=== PATIENT | female | born 1985 | race Asian ===

== ENCOUNTER 2020-02-11 11:53 | Inpatient (IN) | payer OTHER ==
[2020-02-11] VITALS (13 sets, daily range): BP systolic 101–127; BP diastolic 63–87
[~2020-02-11] VITALS: Ht 153 cm; Wt 49.9 kg
--- NOTE | 2020-02-11 12:13 | Emergency Room Report ---
History of Present Illness General Chief Complaint: Back Injury Source: Patient Present Illness HPI Patient is a 34-year-old female who presents after increased low back pain rating to her left leg. Patient reports having pain down to her foot. Had been having increased difficulty with urination. Reports having some abnormal sensation to her perineal area. Patient had recent MRI performed which showed some abnormality to the L5-S1 disc. With disc extrusion. Patient had been having difficulty with ambulation. Patient was sent in by Dr. Roy.Patient had no complaints of neck discomfort. She denies any stool incontinence. 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 Patient History Past Medical History: see triage record Last Menstrual Period: 01/07/20 Reviewed Nursing Documentation: PMH: Agreed; PSxH: Agreed Nursing Documentation-PMH Past Medical History: No History, Except For Review of Systems All Other Systems: negative except mentioned in HPI Physical Exam Vital Signs Date Time Temp Pulse Resp B/P (MAP) Pulse Ox O2 Delivery O2 Flow Rate FiO2 02/11/20 11:57 98.1 106 17 105/73 (84) 98 Room Air Sp02 EP Interpretation: reviewed, normal General Appearance: normal inspection, well appearing, no apparent distress, alert, GCS 15 Head: atraumatic ENT: normal ENT inspection, hearing grossly normal, normal voice Neck: normal inspection, full range of motion, supple, no bony tend Respiratory: normal inspection, lungs clear, normal breath sounds, no respiratory distress, no retraction, no wheezing Cardiovascular #1: regular rate, rhythm, no edema Gastrointestinal: normal inspection, normal bowel sounds, non tender, soft, no guarding, no hernia Genitourinary: no CVA tenderness Musculoskeletal: normal inspection, back normal, normal range of motion Neurologic: alert, 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 Differential diagnosis include was not limited to cauda equina syndrome, lumbar herniated disc, epidural abscess among others. Because of complexity of patient 's case laboratory tests and imaging studies were ordered. Patient was referred with an MRI which had previously showed severe extrusion of disc. Patient was having difficulty with ambulation and is unable to flex of the spine at all. Dr. Roy was contacted and patient will be hospitalized for operative management of probable cauda equina syndrome.Preop laboratory testing was sentDrAzael Galeano was contacted for inpatient management. Labs Test 02/11/20 12:25 White Blood Count 7.4 K/UL (4.8-10.8) Red Blood Count 4.82 M/UL (4.20-5.40) Hemoglobin 14.8 G/DL (12.0-16.0) Hematocrit 43.3 % (37.0-47.0) Mean Corpuscular Volume 90 FL (80-99) Mean Corpuscular Hemoglobin 30.8 PG (27.0-31.0) Mean Corpuscular Hemoglobin Concent 34.3 G/DL (32.0-36.0) Red Cell Distribution Width 10.5 % (11.6-14.8) Platelet Count 262 K/UL (150-450) Mean Platelet Volume 7.0 FL (6.5-10.1) Neutrophils (%) (Auto) 63.5 % (45.0-75.0) Lymphocytes (%) (Auto) 29.7 % (20.0-45.0) Monocytes (%) (Auto) 5.2 % (1.0-10.0) Eosinophils (%) (Auto) 0.7 % (0.0-3.0) Basophils (%) (Auto) 1.0 % (0.0-2.0) Prothrombin Time 12.2 SEC (9.30-11.50) Prothromb Time International Ratio 1.1 (0.9-1.1) Activated Partial Thromboplast Time 25 SEC (23-33) Urine Color Pale yellow Urine Appearance Slightly cloudy Urine pH 5 (4.5-8.0) Urine Specific [place] 1.015 (1.005-1.035) Urine Protein 1+ (NEGATIVE) Urine Glucose (UA) Negative (NEGATIVE) Urine Ketones Negative (NEGATIVE) Urine Blood 1+ (NEGATIVE) Urine Nitrite Negative (NEGATIVE) Urine Bilirubin Negative (NEGATIVE) Urine Urobilinogen Normal MG/DL (0.0-1.0) Urine Leukocyte Esterase 2+ (NEGATIVE) Urine HCG, Qualitative Negative (NEGATIVE) Sodium Level 137 MMOL/L (136-145) Potassium Level 3.3 MMOL/L (3.5-5.1) Chloride Level 101 MMOL/L (98-107) Carbon Dioxide Level 26 MMOL/L (21-32) Anion Gap 10 mmol/L (5-15) Blood Urea Nitrogen 12 mg/dL (7-18) Creatinine 0.9 MG/DL (0.55-1.30) Estimat Glomerular Filtration Rate > 60 mL/min (>60) Glucose Level 90 MG/DL (74-106) Calcium Level 9.7 MG/DL (8.5-10.1) Total Bilirubin 0.7 MG/DL (0.2-1.0) Aspartate Amino Transf (AST/SGOT) 16 U/L (15-37) Alanine Aminotransferase (ALT/SGPT) 13 U/L (12-78) Alkaline Phosphatase 38 U/L (46-116) Total Protein 8.5 G/DL (6.4-8.2) Albumin 4.4 G/DL (3.4-5.0) Globulin 4.1 g/dL Albumin/Globulin Ratio 1.1 (1.0-2.7) Last Vital Signs Date Time Temp Pulse Resp B/P (MAP) Pulse Ox O2 Delivery O2 Flow Rate FiO2 02/11/20 12:01 98.1 106 17 105/73 98 Room Air Status: unchanged Disposition: ADMITTED INPATIENT Condition: Stable Carlos Mahan MD Feb 11, 2020 12:13
--- NOTE | 2020-02-11 12:34 | Diagnostic Imaging Report ---
Indication: Chest pain. Preop Technique: XRAY Chest 1v Comparison: None Findings: Heart size and mediastinal contours are within normal limits for AP technique. There is no focal airspace consolidation, pneumothorax or pleural effusion. Osseous structures demonstrate no acute abnormality. Impression: No radiographic evidence of acute cardiopulmonary disease.
[2020-02-11 12:56] LABS: EOSINOPHILS % (AUTO) 0.7 % (0.0-3.0); HEMATOCRIT 43.3 % (37.0-47.0); HEMOGLOBIN 14.8 G/DL (12.0-16.0); LYMPHOCYTES % (AUTO) 29.7 % (20.0-45.0); MEAN CORPUSCULAR VOLUME 90 FL (80-99); MONOCYTES % (AUTO) 5.2 % (1.0-10.0); NEUTROPHILS % (AUTO) 63.5 % (45.0-75.0); PLATELET COUNT 262 K/UL (150-450); RED BLOOD COUNT 4.82 M/UL (4.20-5.40); RED CELL DISTRIBUTION WIDTH 10.5 % (11.6-14.8); WHITE BLOOD COUNT 7.4 K/UL (4.8-10.8)
[2020-02-11 12:58] LABS: ANION GAP 10 mmol/L (5-15); BLOOD UREA NITROGEN 12 mg/dL (7-18); CALCIUM 9.7 MG/DL (8.5-10.1); CARBON DIOXIDE 26 MMOL/L (21-32); CHLORIDE 101 MMOL/L (98-107); CREATININE 0.9 MG/DL (0.55-1.30); INR 1.1 (0.9-1.1); POTASSIUM 3.3 MMOL/L (3.5-5.1); SODIUM 137 MMOL/L (136-145)
[2020-02-11 13:01] LABS: APPEARANCE,URINE SLIGHTLY CLOUDY; BILIRUBIN, URINE NEGATIVE (NEGATIVE); COLOR,URINE PALE YELLOW; GLUCOSE, URINE (UA) NEGATIVE (NEGATIVE); KETONES,URINE NEGATIVE (NEGATIVE); LEUKOCYTE ESTERASE ,URINE 2+ (NEGATIVE); NITRITE,URINE NEGATIVE (NEGATIVE); PH,URINE 5 (4.5-8.0); PROTEIN,URINE 1+ (NEGATIVE); UROBILINOGEN,URINE NORMAL MG/DL (0.0-1.0)
[2020-02-11 13:03] LABS: ALANINE AMINOTRANSFERASE 13 U/L (12-78); ALBUMIN 4.4 G/DL (3.4-5.0); ALBUMIN/GLOBULIN RATIO 1.1 (1.0-2.7); ALKALINE PHOSPHATASE 38 U/L (46-116); ASPARTATE AMINO TRANSFERASE 16 U/L (15-37); BILIRUBIN,TOTAL 0.7 MG/DL (0.2-1.0)
[2020-02-11] MEDS ORDERED: cefTRIAXone 1 GM in NS 55 ML IVPB ONE (13:30)
[2020-02-11] MEDS ORDERED: LR 1000ml 1,000 ML IVLG SCH (13:56)
[2020-02-11] MEDS ORDERED: Labetalol 5mg/ml 20ml vial IV PRN (14:00)
[2020-02-11] MEDS ORDERED: Acetaminophen (Non formulary) 100 ML IV ONE (14:00)
[2020-02-11] MEDS ORDERED: oxyCODONE HCL/Acetaminophen 5/325mg ORAL PRN (14:00)
[2020-02-11] MEDS ORDERED: LORazepam Inj 2mg/ml 1ml IV PRN (14:00)
[2020-02-11] MEDS ORDERED: HYDROcodone/Acetamin 5/325 tab ORAL PRN ×2 (14:00→18:02)
[2020-02-11] MEDS ORDERED: Atropine Sulfate 0.4mg/ml inj IVP PRN (14:00)
[2020-02-11] MEDS ORDERED: fentaNYL 100 mcg/2 mL IV PRN (14:00)
[2020-02-11] MEDS ORDERED: HYDROcodone/Acetamin 7.5/325 tab ORAL PRN (14:00)
[2020-02-11] MEDS ORDERED: Ketorolac 30mg Inj IV PRN ×2 (14:00)
[2020-02-11] MEDS ORDERED: Metoclopramide 10mg/2ml Inj IVP PRN (14:00)
[2020-02-11] MEDS ORDERED: DiphenhydrAMINE 50mg/ml Inj IVP PRN (14:00)
[2020-02-11] MEDS ORDERED: Midazolam 2mg/2ml Inj IVP PRN (14:00)
[2020-02-11] MEDS ORDERED: Hydromorphone 0.5mg/0.5ml inj IVP PRN (14:00)
[2020-02-11] MEDS ORDERED: TRAMADOL HCL50 MG ORAL (14:01)
[2020-02-11] MEDS ORDERED: MULTI VITAMIN1 EACH ORAL (14:01)
--- NOTE | 2020-02-11 14:01 | Anethesia Preoperative Eval ---
Anesthesia Pre-op PMH/ROS General Date of Evaluation: Feb 11, 2020 Time of Evaluation: 13:58 Anesthesiologist: Judy ASA Score: ASA 1 - Emergency Mallampati Score Class I : Soft palate, uvula, fauces, pillars visible Class II: Soft palate, uvula, fauces visible Class III: Soft palate, base of uvula visible Class IV: Only hard plate visible Mallampati Classification: Class I Surgeon: Kirill Diagnosis: Back Pain Surgical Procedure: L5-S1 Discectomy/ Laminectomy Family History: no anesthesia problems Allergies: Coded Allergies: Gonzalez (Verified Allergy, Unknown, 02/11/20) PEACH (Verified Allergy, Unknown, 02/11/20) Medications: see eMAR Patient NPO?: Yes Anesthesia Pre-op Phys. Exam Physician Exam Last Vital Signs Date Time Temp Pulse Resp B/P (MAP) Pulse Ox O2 Delivery O2 Flow Rate FiO2 02/11/20 12:01 98.1 106 17 105/73 98 Room Air Constitutional: NAD Neurologic: CN 2-12 intact Cardiovascular: RRR Respiratory: CTA Gastrointestinal: S/NT/ND Airway Exam Mallampati Score: Class I MO: full ROM: full Teeth: missing, intact Anesthesia Pre-op A/P Labs Hematology Test 02/11/20 12:25 White Blood Count 7.4 K/UL (4.8-10.8) Red Blood Count 4.82 M/UL (4.20-5.40) Hemoglobin 14.8 G/DL (12.0-16.0) Hematocrit 43.3 % (37.0-47.0) Mean Corpuscular Volume 90 FL (80-99) Mean Corpuscular Hemoglobin 30.8 PG (27.0-31.0) Mean Corpuscular Hemoglobin Concent 34.3 G/DL (32.0-36.0) Red Cell Distribution Width 10.5 % (11.6-14.8) L Platelet Count 262 K/UL (150-450) Mean Platelet Volume 7.0 FL (6.5-10.1) Neutrophils (%) (Auto) 63.5 % (45.0-75.0) Lymphocytes (%) (Auto) 29.7 % (20.0-45.0) Monocytes (%) (Auto) 5.2 % (1.0-10.0) Eosinophils (%) (Auto) 0.7 % (0.0-3.0) Basophils (%) (Auto) 1.0 % (0.0-2.0) Coagulation Test 02/11/20 12:25 Prothrombin Time 12.2 SEC (9.30-11.50) H Prothromb Time International Ratio 1.1 (0.9-1.1) Activated Partial Thromboplast Time 25 SEC (23-33) Chemistry Test 02/11/20 12:25 Sodium Level 137 MMOL/L (136-145) Potassium Level 3.3 MMOL/L (3.5-5.1) L Chloride Level 101 MMOL/L (98-107) Carbon Dioxide Level 26 MMOL/L (21-32) Anion Gap 10 mmol/L (5-15) Blood Urea Nitrogen 12 mg/dL (7-18) Creatinine 0.9 MG/DL (0.55-1.30) Estimat Glomerular Filtration Rate > 60 mL/min (>60) Glucose Level 90 MG/DL (74-106) Calcium Level 9.7 MG/DL (8.5-10.1) Total Bilirubin 0.7 MG/DL (0.2-1.0) Aspartate Amino Transf (AST/SGOT) 16 U/L (15-37) Alanine Aminotransferase (ALT/SGPT) 13 U/L (12-78) Alkaline Phosphatase 38 U/L (46-116) L Total Protein 8.5 G/DL (6.4-8.2) H Albumin 4.4 G/DL (3.4-5.0) Globulin 4.1 g/dL Albumin/Globulin Ratio 1.1 (1.0-2.7) Urine Test Test 02/11/20 12:25 Urine HCG, Qualitative Negative (NEGATIVE) Risk Assessment & Plan Assessment: ASA 1E Plan: GA, SED, GlideScope Status Change Before Surgery: No Pre-Antibiotics Dru Grams Ancef IV Time Given: 15:36 Rober Kim MD Feb 11, 2020 14:01
[2020-02-11] MEDS ORDERED: Vancomycin 1gm vial IVPB ONE (14:37)
[2020-02-11] MEDS ORDERED: Thrombin 5000 units TOPIC ONE (14:38)
[2020-02-11] MEDS ORDERED: Gelfoam Size TOPIC ONE (14:38)
[2020-02-11] MEDS ORDERED: Bupivacaine w/Epi 0.5% 30ml Vial INJ ONE (14:38)
[2020-02-11] MEDS ORDERED: Rocuronium Bromide 50mg/5ml Inj IV ONE (14:44)
[2020-02-11] MEDS ORDERED: Bacitracin 50000 Units Vial ONE (14:44)
[2020-02-11] MEDS ORDERED: Sodium Chloride 10ml vial INJ ONE (14:49)
[2020-02-11] MEDS ORDERED: Lidocaine 1% MPF 10mg/ml 5ml ONE (14:49)
[2020-02-11] MEDS ORDERED: Lidocaine 1% Plain 30 ml INJ ONE (14:50)
[2020-02-11] MEDS ORDERED: fentaNYL 100 mcg/2 mL IV ONE (14:50)
[2020-02-11] MEDS ORDERED: NS Irrig 1000ml ONE (15:00)
[2020-02-11] MEDS ORDERED: propofoL 1,000mg/100ml IV ONE (15:00)
[2020-02-11] MEDS ORDERED: Sterile Water Irrig 1000ml IRRIG ONE (15:00)
[2020-02-11] MEDS ORDERED: LR 1000ml ONE (15:00)
--- NOTE | 2020-02-11 15:10 | Pre-Procedure Note/Attestation ---
Pre-Procedure Note/Attestation Complete Prior to Procedure Procedure Narrative: L5S1 Laminectomy and discectomy Indications for Procedure Pre-Operative Diagnosis: L5S1 disc herniation with cauda equina syndrome Attestation I attest that I discussed the nature of the procedure; its benefits; risks and complications; and alternatives (and the risks and benefits of such alternatives ), prior to the procedure, with the patient (or the patient's legal practice representative). I attest that, if there was a reasonable possibility of needing a blood transfusion, the patient (or the patient's legal practice representative) was given the [facility] standardized written summary, pursuant to the César [employer] Sleep Blood Safety Act ([place] Health and Safety Code # 1645, as amended). I attest that I re-evaluated the patient just prior to the surgery and that there has been no change in the patient's H&P, except as documented below: Mauro Roy MD Feb 11, 2020 15:10
[2020-02-11] MEDS ORDERED: BSS 15ml BTL ONE (15:18)
[2020-02-11] MEDS ORDERED: Glycopyrrolate 0.2mg/ml 1ml Vial ONE (16:42)
[2020-02-11] MEDS ORDERED: Neostigmine 1mg/ml 10ml Inj ONE (16:42)
[2020-02-11] MEDS ORDERED: NS Irrig 1000ml IRRIG ONE (16:45)
--- NOTE | 2020-02-11 16:58 | Immediate Post-Op Evaluation ---
Immediate Post-Op Evalulation Immediate Post-Op Evalulation Procedure: L5-S1 Discectomy/ Laminectomy Date of Evaluation: Feb 11, 2020 Time of Evaluation: 15:28 IV Fluids: 900 LR Blood Products: 0 Estimated Blood Loss: 40 Urinary Output: 700 Blood Pressure Systolic: 104 Blood Pressure Diastolic: 75 Pulse Rate: 74 Respiratory Rate: 16 O2 Sat by Pulse Oximetry: 100 Temperature (Fahrenheit): 97.1 Pain Score (1-10): 2 Nausea: No Vomiting: No Complications 0 Patient Status: awake, reacts, patent, extubated, none Hydration Status: adequate Dru Grams Ancef IV Given Within 1 Hr of Incision: Yes Time Given: 15:36 Rober Kim MD Feb 11, 2020 16:58
--- NOTE | 2020-02-11 17:09 | Brief Operative Note ---
Immediate Post Operative Note Operative Note Pre-op Diagnosis: L5S1 disc herniation with cauda equina syndrome Procedure: L5 and S1 laminectomy and discectomy L Post-op Diagnosis: same as pre-op Findings: consistent w/pre-op dx studies Surgeon: efrain Transformer Molder: theresa cotter Anesthesia: general Specimen: yes - l5s1 disc Complications: none Condition: stable Fluids: 900 Estimated Blood Loss: minimal Drains: none Implant(s) used?: No Mauro Roy MD Feb 11, 2020 17:09
[2020-02-11] MEDS: Meperidine 25mg/0.5ml Inj (FOR RIGORS ONLY) IV PRN ×2 (17:30→17:48)
[2020-02-11] MEDS ORDERED: Milk of Magnesia 30ml Ud ORAL PRN (18:03)
--- NOTE | 2020-02-11 19:30 | Operative Note - Dictated ---
DATE OF OPERATION: 02/11/2020 SURGEON: Mauro Roy MD NATURAL GAS INSPECTOR: Pedro Pineda MD ANESTHESIA: Rober Kim MD ANESTHESIA TYPE: General endotracheal anesthesia. PREOPERATIVE DIAGNOSIS: Giant disk extrusion, L5-S1, with severe acquired spinal stenosis and cauda equina syndrome with left lower extremity radiculopathy and weakness. POSTOPERATIVE DIAGNOSIS: Giant disk extrusion, L5-S1, with severe acquired spinal stenosis and cauda equina syndrome with left lower extremity radiculopathy and weakness. PROCEDURE: 1. Wide and radical laminectomy, left side. 2. Wide and radical laminectomy, left side S1. 3. Medial facetectomy, left L5-S1. 4. Excision of extruded disk fragment, L5-S1. 5. Use of fluoroscopy. 6. Use of operating microscope. 7. Neurodiagnostic monitoring. ESTIMATED BLOOD LOSS: Minimal. FLUIDS: 900 mL. COMPLICATIONS: None. INDICATIONS: The patient is a very pleasant woman, 34 years old, I met earlier in the day. She was in intractable pain. She could barely stand or walk. She had symptoms for several weeks; however, over the course of the last 3-5 days, she had developed perineal sensory loss. She has had the inability to have normal bowel movements. She has intractable pain down the left lower extremity despite oral steroids. An MRI confirmed a 22-mm disk extrusion at L5-S1 obliterating the left side of the canal at the L5 and S1 level with extrusion of the disk down beyond S1-S2 level. Due to the neurologic deficit, weakness in the left lower extremity, exceedingly large nature of the disk herniation as well as the intractable nature of her pain and failure of management with conservative care/steroids, surgical intervention was recommended. RISK NOTE: The patient was explained in detail risks and benefits of surgery to include but not be limited to those of bleeding, infection, damage to nerves/vessels/tendons, anesthetic risk, allergic reaction, aspiration, and possibly . Potential risk of recurrent disk herniation was discussed. The patient understood and wished to proceed. OPERATIVE PROCEDURE IN DETAIL: The patient was taken to the operating suite after positive identification was made. She was put to sleep. General anesthesia was induced and endotracheal tube was placed. Aguirre catheter was placed. She received 2 grams of Ancef. She was then turned prone onto a Ap frame. All bony prominences were well padded. The back was prepped and draped in usual sterile fashion. At this point, the back was visualized after it was prepped and draped. Two needles were placed at L4-L5 and L5-S1, and radiographically positioning was confirmed. A midline incision was carried out at L5-S1 spinous process. Subperiosteal dissection was carried out. High-speed drill was brought in place after fluoroscopically this L5-S1 level was verified. Self-retaining retractor was put in place. The high-speed drill was then used to perform laminectomy of the leading edge of L5 and superior one-half of S1. Medial facetectomy of approximately one-quarter of the facet joint was drilled out. Curved curette mobilized the ligamentum flavum. Kerrison punch completed the laminectomy at L5, inferior one-half as well as S1 superior three-quarters. The ligamentum flavum was removed in a piecemeal fashion. The S1 nerve root was noted to be exceedingly tight. I attempted to mobilize the S1 nerve root medially; however, this could not be performed as the disk herniation was medial to and in the area of the axilla of S1 and S2. An interaxillary approach was then taken. The disk was identified, mobilized, and a #15 blade was used to incise the posterior longitudinal ligament. The L5-S1 disk extrusion was then removed in a very large single piece, which measured approximately 8 cm. Videographic and photographic images were obtained. At this point, once satisfied with the removal of the disk extrusion, attention was then turned to the disk space. Although there was a small and notable defect within the disk, copious irrigation demonstrated no obvious loose disk fragment. A pituitary grasper was used to remove any further loose disk fragments from within the disk. Meticulous hemostasis was then achieved. Once satisfied with decompression, Valsalva maneuver was performed demonstrating no evidence of dural leak. Copious irrigation was then performed. Meticulous hemostasis was performed. FloSeal was applied. Decision was made to close. The fascia was repaired using #1 Vicryl and subcu closure using 2-0 Vicryl. Dermabond and sterile dressing was applied. The patient was then turned onto her back, awakened, extubated, and transferred to recovery room in stable condition. Sponge and needle counts were correct. Neurodiagnostic monitoring remained unchanged throughout the procedure. Mauro Ajay Roy DR: Clementine JOB#: [id number] CC:
[2020-02-11] MEDS: D5 1/2NS 1,000 ML IV SCH (20:30)
[2020-02-11] MEDS: Docusate 100mg cap ORAL SCH (21:04)
[2020-02-11] MEDS ORDERED: ceFAZolin sod 1 GM in D5W 55 ML IV SCH (22:00)
[2020-02-12] VITALS: BP 110/68
[2020-02-12 03:38] VITALS: BP 107/69
[2020-02-12] MEDS: ceFAZolin sod 1 GM in D5W 55 ML IV SCH ×2 (05:43→13:36)
[2020-02-12] MEDS: D5 1/2NS 1,000 ML IV SCH ×2 (05:43→16:00)
[2020-02-12 08:00] VITALS: BP 125/76
[2020-02-12] MEDS: Docusate 100mg cap ORAL SCH (09:07)
--- NOTE | 2020-02-12 09:18 | 48 Hour Post Anesthesia Eval ---
Post Anesthesia Evaluation Procedure: L5-S1 Discectomy/ Laminectomy Date of Evaluation: Feb 12, 2020 Time of Evaluation: 09:16 Blood Pressure Systolic: 116 0: 72 Pulse Rate: 74 Respiratory Rate: 18 Temperature (Fahrenheit): 97.6 O2 Sat by Pulse Oximetry: 98 Airway: patent Nausea: No Vomiting: No Pain Intensity: 2 Hydration Status: adequate Cardiopulmonary Status: stable Mental Status/LOC: patient returned to baseline Follow-up Care/Observations: n/a Post-Anesthesia Complications: none Follow-up care needed: N/A Erich Joyce MD Feb 12, 2020 09:18
[2020-02-12 12:00] VITALS: BP 118/66
--- NOTE | 2020-02-12 13:45 | History and Physical Report ---
DATE OF ADMISSION: 02/11/2020 CHIEF COMPLAINT: Back pain. HISTORY OF PRESENT ILLNESS: The patient is a pleasant 34-year-old female who presents with complaints of 3 weeks of progressive back pain and left leg numbness and weakness. Three weeks ago, she noticed a gradual onset of pain in the back radiating down her left leg. She has had difficulty ambulating, was "dragging" the leg for the last several days. She saw Dr. Roy in his office, who reviewed her MRI. She was admitted for evaluation and surgery for possible cauda equina syndrome. PAST MEDICAL HISTORY: None. PAST SURGICAL HISTORY: Includes tonsillectomy. CURRENT MEDICATIONS: Include only multivitamins and tramadol. FAMILY HISTORY: Significant for hypertension and diabetes. SOCIAL HISTORY: The patient drinks socially. Occasionally, smokes marijuana to help her with her back pain. No other drugs. REVIEW OF SYSTEMS: GENERAL: No fevers or chills. HEENT: No headaches or visual changes. CARDIOPULMONARY: No chest pain or shortness of breath. GASTROINTESTINAL: No nausea or vomiting. GENITOURINARY: No urgency or frequency. MUSCULOSKELETAL: No joint pain or swelling. NEUROLOGIC: No evidence of seizures. PHYSICAL EXAMINATION: VITAL SIGNS: Temperature 98, pulse 71, respirations 18, and blood pressure 107/69. GENERAL: The patient is a well-developed female, in no apparent distress. She is awake, alert, and oriented x4. HEENT: Oropharynx is clear. Sclerae anicteric. NECK: Supple. HEART: Regular rate and rhythm. LUNGS: Clear. ABDOMEN: Soft, nontender and nondistended. EXTREMITIES: Without clubbing, cyanosis, or edema. Motor strength is 5/5 bilaterally. Sensation is slightly diminished in the left foot on the lateral portion. LABORATORY DATA: White count was 7, hemoglobin 14. Coags are normal. UA showed 5 to 10 wbc's. ASSESSMENT: This is a pleasant female admitted with complaints of cauda equina syndrome, status post surgery. RECOMMENDATIONS: 1. DVT prophylaxis. 2. Mobilize. 3. PT/OT evaluation. 4. Replace potassium. Teofilo Galeano M.D. DR: Joseph JOB#: [id number] CC:
--- NOTE | 2020-02-12 14:11 | Orthopedic Spine Progress Note ---
Ortho Spine - Progress Note Subjective Symptoms: c/o post-op back pain, improved - as compared to pre-op Objective Vital Signs: Last 24 Hour Vital Signs Date Time Temp Pulse Resp B/P (MAP) Pulse Ox O2 Delivery O2 Flow Rate FiO2 02/12/20 12:00 98.1 85 18 118/66 (83) 99 02/12/20 09:18 74 18 98 02/12/20 09:00 Room Air 02/12/20 08:00 98.4 99 18 125/76 (92) 99 02/12/20 03:38 98.7 71 18 107/69 (82) 99 02/12/20 00:00 98.0 69 18 110/68 (82) 100 02/11/20 23:07 Nasal Cannula 2.0 02/11/20 20:00 97.6 70 18 113/71 (85) 97 02/11/20 19:30 97.7 68 18 108/63 (78) 98 02/11/20 18:25 97.5 64 18 101/69 (80) 100 02/11/20 18:20 98.1 69 12 112/81 100 Nasal Cannula 3 02/11/20 18:18 98.1 02/11/20 18:05 66 10 117/80 100 Nasal Cannula 3 02/11/20 17:50 65 14 122/79 100 Simple Mask 6 02/11/20 17:40 76 12 124/83 100 Simple Mask 6 02/11/20 17:30 66 14 119/78 100 Simple Mask 6 02/11/20 17:20 82 13 127/87 100 Simple Mask 6 02/11/20 17:15 84 12 118/82 100 Simple Mask 6 02/11/20 17:14 74 16 100 02/11/20 17:10 97.0 79 20 104/75 100 Simple Mask 6 02/11/20 14:45 98.3 79 17 102/68 99 Room Air I&O: Intake and Output 02/11/20 02/12/20 19:00 07:00 Intake Total 1100 ml 600 ml Output Total 740 ml 700 ml Balance 360 ml -100 ml Intake Oral 600 ml IV Total 1100 ml Output Urine Total 700 ml 700 ml Estimated Blood Loss 40 ml # Voids 1 3 Wound: clean, intact Neuro Status: other - S1 numbness on L Assessment Procedure Performed: L5 and S1 laminectomy and discectomy L Plan Plan: PT, pain management, discharge plan Mauro Roy MD Feb 12, 2020 14:11
[2020-02-12 16:00] VITALS: BP 91/54
--- NOTE | 2020-02-16 14:47 | Discharge Summary ---
Discharge Summary Hospital Course Date of Admission Feb 11, 2020 at 15:13 Date of Discharge Feb 12, 2020 at 21:00 Admitting Diagnosis L5S1 disc herniation with cauda equina syndrome Reason for Hospitalization: elective surgery HPI 34 years old female could barely stand or walk. She had symptoms for several weeks; however, over the course of the last 3-5 days, she had developed perineal sensory loss. She has had the inability to have normal bowel movements. She had intractable pain down the left lower extremity despite oral steroids. An MRI confirmed a 22-mm disk extrusion at L5-S1 obliterating the left side of the canal at the L5 and S1 level with extrusion of the disk down beyond S1-S2 level. Due to the neurologic deficit, weakness in the left lower extremity, exceedingly large nature of the disk herniation as well as the intractable nature of her pain and failure of management with conservative care/steroids, surgical intervention was recommended. Patient consented for surgery and admitted for elective surgery. Consultations Dr Galeano -IM Procedures s/p 02/11/[address] Roy 1. Wide and radical laminectomy, left side. 2. Wide and radical laminectomy, left side S1. 3. Medial facetectomy, left L5-S1. 4. Excision of extruded disk fragment, L5-S1. 5. Use of fluoroscopy. 6. Use of operating microscope. 7. Neurodiagnostic monitoring. Hospital Course status post surgery course of recovery uneventful initially IV fluids s/p perioperative antibiotics neurovascular status closely monitored, incision with dressing clean, dry, and intact pain management was addressed pain was controlled back pain improved , still S1 numbness on left side remained hemodynamically stable ambulated with PT fall precautions maintained; safe for ambulation DVT prophylaxis provided use of incentive spirometry was encouraged while in the bed tolerated diet , IV fluids discontinued GI prophylaxis provided antiemetics were on board as needed voided freely bowel regimen instituted patient was stable for discharge discharge instructions provided follow up with surgeon in the office as advised by surgeon FINAL DIAGNOSES L5S1 disc herniation with cauda equina syndrome s/p L5 and S1 laminectomy and discectomy L Discharge Medications Continued Medications: Multivitamin (Multi Vitamin Daily) 1 Each Tablet 1 TAB ORAL DAILY for supplement, #30 TAB 0 Refills (This prescription has been renewed) Tramadol Hcl* (Ultram*) 50 Mg Tablet 50 MG ORAL Q6H PRN for For Pain, #12 TAB 0 Refills (This prescription has been renewed) Discharge Condition Upon Discharge: stable Discharge Vital Signs Last Vital Signs Date Time Temp Pulse Resp B/P (MAP) Pulse Ox O2 Delivery O2 Flow Rate FiO2 02/12/20 16:00 98.1 65 18 91/54 (66) 99 02/12/20 09:00 Room Air 02/11/20 23:07 2.0 Discharge Disposition Patient was discharged to Home (01) Discharge Instructions Discharge Instructions Special Instructions I have been assigned to complete a D/C Summary on this account. I was not involved in the patient management Adelaida Padilla NP Feb 16, 2020 14:47
== END 2020-02-12 21:00 | disposition home or self-care (01) | DRG 519 ==
LOC: EMR 12:27 → 4E 12:40 → UNDOADMIN 12:40 → EDBEDREQ 13:47 → SUR 14:24 → 4E 15:13 → 3E 18:22
PROC: 01NR0ZZ Release Sacral Nerve, Open Approach (ICD-10-PCS; principal; 2020-02-11 15:30)
PROC: 01NB0ZZ Release Lumbar Nerve, Open Approach (ICD-10-PCS; principal; 2020-02-11 15:30)
PROC: 0SB40ZZ Excision of Lumbosacral Disc, Open Approach (ICD-10-PCS; principal; 2020-02-11 15:30)
DX: M51.17 Intervertebral disc disorders with radiculopathy, lumbosacral region (principal); G83.4 Cauda equina syndrome; M48.07 Spinal stenosis, lumbosacral region
CPT/HCPCS: 36415; 71045; 80053; 81001; 81025; 85025; 85610; 85730; 86850; 86900; 86901; 93005; 94003; 94150; 96361; 96365; 96368; 99285; J2180; J2405; J2710; J7030; J8499; U0002